=== PATIENT | male | born 1955 | race Caucasian/White ===

== ENCOUNTER 2024-02-15 21:38 | Observation (INO) | payer OTHER, SELFPAY ==
[2024-02-15 17:25] VITALS: BP 132/90
[2024-02-15 17:31] VITALS: BMI 26.4
[2024-02-15 18:00] VITALS: BP 117/74
[2024-02-15 19:00] VITALS: BP 119/79
[2024-02-15] MEDS: NSS 250 IV (19:10)
[2024-02-15 19:40] LABS: ALT (SGPT) 40 U/L (0-50); AST (SGOT) 34 U/L (17-59); Alkaline Phosphatase 138 U/L (38-126); Blood Urea Nitrogen 24 mg/dl (9-20); Calcium 9.3 mg/dl (8.4-10.2); Carbon Dioxide 22 mmol/L (22-30); Chloride 104 mmol/L (98-107); Estimated Creatinine Clearance 100 ml/min; Glucose 113 mg/dl (70-99); Potassium 4.4 mmol/L (3.5-5.1); Sodium 133 mmol/L (135-145); Total Protein 6.8 g/dl (6.3-8.2); eGFR > 60.00
[2024-02-15] MEDS: MORPHINE SULFATE 2 MG IV (19:40)
[2024-02-15 19:43] LABS: % Basophils 0.1 % (0-2); % Eosinophils 0.4 % (0-6); % Immature Granulocytes 1.2 % (0-0.5); % Lymphocytes 15.9 % (20.5-51.1); % Monocytes 7.7 % (1.7-9.3); % Neutrophils 74.7 % (42.2-75.2); Absolute Eosinophils 0.1 10^3/uL (0-0.7); Absolute Immature Granulocytes 0.1 10^3/uL (0-0.05); Absolute Lymphocytes 1.8 10^3/uL (1.2-3.4); Absolute Monocytes 0.9 10^3/uL (0.1-0.6); Absolute Neutrophils 8.4 10^3/uL (1.4-6.5); Hematocrit 36.6 % (39.0-52.0); Hemoglobin 13.1 g/dL (13.0-18.0); Mean Corp Hgb Conc. 35.8 g/dL (33.0-37.0); Mean Corpuscular Hgb 31.9 pg (27.0-31.0); Mean Corpuscular Volume 89.1 fL (80.0-94.0); Mean Platelet Volume 11.1 fL (7.4-10.4); Nucleated Red Blood Cells % 0 % (-); Platelet Count 77 10^3/uL (130-400); Red Blood Cell Count 4.11 10^6/uL (4.70-6.10); White Blood Cell Count 11.2 10^3/uL (4.8-10.8)
--- NOTE | 2024-02-15 20:43 | ED.GENMED ---
History of Present Illness
General
Chief Complaint: Fall
Source: patient
Exam Limitations: none
Time Seen by Provider: 02/15/24 18:35
History of Present Illness
History of Present Illness:
68-year-old male apparently fell trying to assist a friend. Patient's friend fell on him. Mostly complaining of pain left hip and left buttock. No head injury neck pain no chest pain or abdominal pain.
Past History
Past History
ED Past Medical History: Psychiatric and Other (Alcohol abuse)
Review of Systems
Review of Systems
All Other Systems: Not applicable
Respiratory: Reports no symptoms
Cardiac: Reports no symptoms
ABD/GI: Reports no symptoms
Phy Exam
Physical Exam
Physical Exam:
TRAUMA EXAM:
VITAL SIGNS: Vital signs reviewed, cooperative
DISTRESS: No active disease
EYES: Pupils reactive, no orbital trauma
NOSE: No deformity or epistaxis
FACE AND SCALP: No scalp or facial trauma, external canals no blood
NECK: Supple nontender
BACK: Back nontender, pelvis stable to compression. However some tenderness to the left pubic rami and posterior buttock.
RESPIRATORY: No distress, breath sounds normal, no tender chest wall
CARDIAC: No murmur, pulses equal and strong
ABDOMEN: Soft mild tenderness nonlocalizing. Mostly lower quadrants. No rebound or guarding no mass or hernia
SKIN: Skin intact no bleeding, color normal
EXTREMITIES: No pain with hip rotation. Upper extremities normal.
NEUROLOGICAL: Alert, oriented, no motor deficits
PSYCH: Mood affect normal
Course
Orders/Labs/Results
Orders:
Orders
02/15/24 18:49
0.9% Sodium Chloride 250 ml [Nss] 250 ml IV BOLUS
02/15/24 18:50
CT Abd/pel W Iv Cont (trauma) Urgent
Comment:
Reason For Exam: Fall/abdominal pain
Cardiac Monitoring- Treatment ONCE
CR Hip - LT w/wo Pel 2-3 Vw* Urgent
Comment: include pelvis
Reason For Exam: Fall/left leg pain
Include a pelvis x-ray?: Yes
02/15/24 19:16
Complete Blood Count/With Diff Urgent
Comprehensive Metabolic Panel Urgent
02/15/24 19:52
Morphine Sulfate 2 mg .ROUTE .STK-MED ONE
02/15/24 20:07
Morphine Sulfate 2 mg IV NOW STA
02/15/24 21:13
Admit/Transfer Patient As Directed
Co-Sign Provider:
Level of Care: Observation services
Assign to:: Medical/Surgical
Physician / Group: Dior
Diagnosis: Pelvic Fracture
02/15/24 21:18
PRN Pain Medication Management As Directed
May give lesser potent ordered pain med per pt: Yes
preference::
Protocol:: Medication orders for pain may be administered in a
manner that supports deferring to patient preference
when the pt is:
- Requesting an ordered lesser potent pain medication.
Least to most potent pain medications are defined
as: acetaminophen < NSAID < tramadol < opioids
(morphine, oxycodone, hydromorphone).
- Requesting a lesser dose of the same medication IF
ORDERED.
- Requesting a less intrusive route of administration
if both routes are prescribed by the provider (PO <
IV).
02/15/24 21:19
Code Status As Directed
Resuscitation Status: Full Code
02/15/24 21:33
Type+Screen Urgent
Prothrombin Time Urgent
02/15/24 22:00
Flush (0.9% Sodium Chloride) [Flush (Nss)] See Dose Instructions IV PER PROTOCOL
Abnormal Lab Results
02/15/24 02/15/24
19:16 21:33
WBC 11.2 H 10^3/uL
(4.8-10.8)
RBC 4.11 L 10^6/uL
(4.70-6.10)
Hct 36.6 L %
(39.0-52.0)
MCH 31.9 H pg
(27.0-31.0)
Plt Count 77 L 10^3/uL
(130-400)
MPV 11.1 H fL
(7.4-10.4)
Abs Immat Gran (auto) 0.1 H 10^3/uL
(0-0.05)
Absolute Neuts (auto) 8.4 H 10^3/uL
(1.4-6.5)
Absolute Monos (auto) 0.9 H 10^3/uL
(0.1-0.6)
Immature Gran % 1.2 H %
(0-0.5)
Lymphocytes % 15.9 L %
(20.5-51.1)
PT 16.0 H Sec
(11.4-14.6)
Sodium 133 L mmol/L
(135-145)
BUN 24 H mg/dl
(9-20)
Glucose 113 H mg/dl
(70-99)
Alkaline Phosphatase 138 H U/L
(38-126)
02/15/24 19:16
02/15/24 19:16
Vital Signs
Initial and Last Documented VS:
Initial Vital Signs
BP
132/90
02/15/24 17:25
Last Documented Vital Signs
Pulse Resp BP Pulse Ox
82 17 108/68 95
02/15/24 22:10 02/15/24 22:10 02/15/24 22:10 02/15/24 22:10
*Radiology
Radiology exam reviewed: radiology read reviewed (Nondisplaced fractures left superior rami buckle of the inferior rami. Transverse fracture of the left iliac crest no acetabular fracture small amount of blood along the pelvic wall though no active
bleeding no evidence of abdominal trauma.)
*Pulse Oximetry
Patient hypoxic: no
*Critical Care Note
Total Time (30-74mins, 75-104mins- exclusive of procedures): Not Applicable
Update Note
Update Note:
Patient has remained medically stable. Nondisplaced pelvic fractures. Admission for further care
ED Attending Note
-
Portions of this chart may have been created with voice recognition software.� Occasional wrong word or��sound alike� substitutions may have occurred due to the inherent limitations of voice recognition software.
Discharge Plan
Departure
Patient Disposition: Admit
Date of Disposition: 02/15/24
Time of Disposition: 20:45
Presentation/result/management discussed w/ accepting MD/DO: Hospitalist
Discharge Problem:
Pelvic fracture, Cirrhosis, Schizoaffective disorder
Interventions
Interventions:
*Risk Screen - Suicide Last Done: 02/15/24 17:24
*General Assessment Last Done: 02/15/24 17:24
*Neglect/Abuse Screening Last Done: 02/15/24 17:24
ED- Fall Risk Assessment Last Done: 02/15/24 17:24
*ED COVID-19 Vaccine History Last Done: 02/15/24 22:30
*Nursing Disposition Last Done: 02/15/24 22:10
ED-Musculoskeletal Assessment Last Done: 02/15/24 17:32
ED- Neurological Assessment Last Done: 02/15/24 17:24
ED-Skin Assessment Last Done: 02/15/24 17:24
Discharge Date and Time
Discharge Date/Time: 02/15/24 22:11
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
[2024-02-15 21:00] VITALS: BP 115/71
--- NOTE | 2024-02-15 21:32 | HPS.HSE ---
Addendum entered and electronically signed by Jaya Rader DO 02/16/24 06:39:
I saw and examined the patient.
The PAs's note was reviewed and I agree with plan as below; see Update Note dated 02/15/24 for attending attestation.
Original Note:
Family Physician
-
Family Physician: Martin Yee, DO
Chief Complaint
-
Fall
History of Present Illness
Patient is a 68 y/o male past medical history of alcohol cirrhosis, chronic thrombocytopenia and polyneuropathy who presents following a fall. Patient reports he was attempting to help his roommate off the floor of the bathroom when he lost his
balance and fell landing on his left hip/buttock area. Patient complains of significant pain. Work-up in ED reveal evidence of multiple pelvic fractures.
Medical History
Past Medical History
Past Medical History: Reports Other
Additional Past Medical History:
Depression / Mood Disorder
Alcohol Use Disorder
Alcoholic Cirrhosis
Thrombocytopenia
Polyneuropathy
Past Surgical History: Reports None
Social History
Tobacco: Former Smoker (Quit in 1993)
Alcohol: Former
Living: Correction
Family History
Family History: Not pertinent
Allergies / Home Medications
Allergies reflects when Allergies were last updated in [facility].
Home Medications with original date entered in [facility]
Allergy/Medication List:
Allergies
Allergy/AdvReac Type Severity Reaction Status Date / Time
No Known Allergies Allergy Verified 02/15/24 19:29
Home Medications
Miralax 17 g PO DAILY 02/15/24
Seroquel XR 50 mg PO QHS 02/15/24
Vitamin D3 25 mcg PO DAILY 02/15/24
Xifaxan 550 mg PO BID 02/15/24
ascorbic acid (vitamin C) 500 mg PO DAILY 02/15/24
cyclobenzaprine 5 mg tablet 5 mg PO QHS 02/15/24
docusate sodium 100 mg capsule (Colace) 100 mg PO DAILY 02/15/24
duloxetine 20 mg capsule,delayed release sprinkle 20 mg PO DAILY 02/15/24
ferrous sulfate 325 mg PO DAILY 02/15/24
folic acid 1 mg tablet 1 mg PO DAILY 02/15/24
furosemide 40 mg PO DAILY 02/15/24
gabapentin 400 mg PO TID 02/15/24
lactulose 20 g PO TID 02/15/24
magnesium oxide 400 mg PO TID 02/15/24
melatonin 5 mg PO QHS 02/15/24
olanzapine 10 mg PO DAILY 02/15/24
pantoprazole 40 mg tablet,delayed release (Protonix) 40 mg PO DAILY 02/15/24
senna 836 mg PO DAILY 02/15/24
spironolactone 50 mg PO BID 02/15/24
thiamine HCl (vitamin B1) 100 mg PO DAILY 02/15/24
Review of Systems
-
A 12 point ROS was completed and negative except as noted: Yes
Constitutional: Denies Fever or Chills
Respiratory: Denies Cough or Trouble Breathing
Abdomen/GI: Denies Abdominal Pain, Nausea, Vomiting or Diarrhea
: Denies Bleeding
Physical Exam
Vital Signs
Vital Signs
Pulse Resp BP Pulse Ox
85 23 119/79 94
02/15/24 19:15 02/15/24 19:15 02/15/24 19:00 02/15/24 19:00
Physical Exam
General: Comfortable and Conversant
HEENT: Anicteric and Moist mucous membranes
Respiratory: Clear and Non Labored Respirations
Cardiac: S1/S2 and Regular Rhythm
GI: Soft and Non Tender
Musculoskeletal: No Clubbing, No Cyanosis and No Edema
Skin: Warm and Dry
Neuro: Awake, Alert, Oriented and Nonfocal/grossly intact
Psych: Calm
Laboratory Results
-
02/15/24 19:16
02/15/24 19:16
Laboratory Results
Total Bilirubin 1.0 mg/dl (0.2-1.3) 02/15/24 19:16
AST 34 U/L (17-59) 02/15/24 19:16
ALT 40 U/L (0-50) 02/15/24 19:16
Alkaline Phosphatase 138 U/L (38-126) H 02/15/24 19:16
Data Reviewed
-
CT Scan: Report Reviewed by me
Lab Data: Labs Reviewed by me
Impression/Plan
-
Multiple Pelvic Fractures
-CT Abd/Pelvis CT: Non-displaced fracture of the left superior pubic rami. Buckled appearing fracture of the left inferior pubic rami. Transverse appearing fracture noted of left iliac crest fracture. Small amount of blood products noted along the
left pelvic sidewall. No evidence of extravasation to suggest bladder injury. No blush of contrast to suggest ongoing hemorrhage.
-Consult Ortho
-Bedrest until seen by Ortho
-Trend H&H
-Check coags and type/screen
-Pain management
Alcoholic Cirrhosis
-Continue Lasix and Spironolactone
-Continue Lactulose
-Continue Xifaxan
Chronic Thrombocytopenia
-Monitor platelet count
Polyneuropathy
-Continue gabapentin
Depression / Mood Disorder
-Continue duloxetine, Zyprexa and Seroquel
DVT proph: SCDs
Code Status: Full Code
[2024-02-15 22:10] VITALS: BP 108/68
[2024-02-15 23:21] VITALS: BP 124/75; BMI 25.5
[2024-02-15] MEDS: MELATONIN 5 MG PO (23:42)
[2024-02-15] MEDS: DUPHALAC/CHRONULAC 20 GRAMS PO (23:42)
[2024-02-15] MEDS: NEURONTIN 400 MG PO (23:42)
[2024-02-15] MEDS: MAGNESIUM OXIDE 500 MG PO (23:42)
[2024-02-15] MEDS: DILAUDID 0.5 MG IV (23:43)
--- NOTE | 2024-02-15 23:45 | PTCARENOTE ---
Received patient from ED via stretcher. Patient pulled over from stretcher to bed, ordered bedrest due to pelvic fractures. States pain is 9/10 to his left buttock - prn dilaudid given as ordered. Oriented patient to room and placed call avery within
reach.
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
[2024-02-16 06:00] VITALS: BMI 25.4
[2024-02-16] MEDS: DILAUDID 0.5 MG IV (06:17)
[2024-02-16 07:35] VITALS: BP 112/73
[2024-02-16] MEDS: FEOSOL 325 MG PO (07:57)
[2024-02-16] MEDS: MIRALAX 17 GRAMS PO (07:57)
[2024-02-16] MEDS: ALDACTONE 50 MG PO ×2 (07:57→21:31)
[2024-02-16] MEDS: DUPHALAC/CHRONULAC 20 GRAMS PO ×3 (07:57→21:32)
[2024-02-16] MEDS: SEROQUEL 25 MG PO ×2 (07:58→20:27)
[2024-02-16] MEDS: MAGNESIUM OXIDE 500 MG PO ×3 (07:58→21:30)
[2024-02-16] MEDS: ZYPREXA 10 MG PO (07:58)
[2024-02-16] MEDS: FOLVITE 1 MG PO (07:58)
[2024-02-16] MEDS: XIFAXAN 550 MG PO ×2 (07:58→20:27)
[2024-02-16] MEDS: LASIX 40 MG PO (07:58)
[2024-02-16] MEDS: CYMBALTA DELAYED RELEASE 20 MG PO (07:58)
[2024-02-16] MEDS: PROTONIX 40 MG PO (07:58)
[2024-02-16] MEDS: VITAMIN B1 100 MG PO (07:58)
[2024-02-16] MEDS: NEURONTIN 400 MG PO ×3 (07:58→21:30)
--- NOTE | 2024-02-16 08:59 | CON.ORTHO ---
Consultation
-
Date/Time Consultation Requested: 02/16/2024; time unknown
Date/Time Consultation Performed: 02/16/2024; 0800
Requesting Provider: unknown
Performing Provider: Charlene Sanchez PA-C / Dr. Kassandra Sandoval
Reason for Consultation: Left pelvic fractures
Consultation - Orthopedics
History
Mr. Navarro is a 68 y/o male past medical history of alcohol cirrhosis, chronic thrombocytopenia and polyneuropathy seen today for evaluation of his left hip/ pelvis following a fall. He reports he was attempting to help his roommate up from the
bathroom floor. His roommate is quite heavy, and Mr. Navarro fell and landed on his left side. He reports his roommate then fell on top of him. He presented to ED where CT scan reveals fracture of his ilium, superior and inferior pubic rami. He is
resting comfortably in bed this morning. He does endorse mild discomfort about the hip, but states this is improved with his current medications. He denies pain elsewhere and has no other concerns at this time.
Allergies / Home Medications
Allergy/AdvReac Type Severity Reaction Status Date / Time
No Known Allergies Allergy Verified 02/15/24 19:29
�Medication �Instructions �Recorded
Miralax 17 g PO DAILY Constipation 02/15/24
Seroquel XR 50 mg PO QHS Mental Health/Anxiety 02/15/24
Vitamin D3 25 mcg PO DAILY Supplement 02/15/24
Xifaxan 550 mg PO BID CIRRHOSIS 02/15/24
ascorbic acid (vitamin C) 500 mg PO DAILY Supplement 02/15/24
cyclobenzaprine 5 mg tablet 5 mg PO QHS Muscle Spasms 02/15/24
docusate sodium 100 mg capsule 100 mg PO DAILY Constipation 02/15/24
(Colace)
duloxetine 20 mg capsule,delayed 20 mg PO DAILY Depression 02/15/24
release sprinkle
ferrous sulfate 325 mg PO DAILY Supplement 02/15/24
folic acid 1 mg tablet 1 mg PO DAILY Supplement 02/15/24
furosemide 40 mg PO DAILY CIRRHOSIS 02/15/24
gabapentin 400 mg PO TID NEUROPATHY 02/15/24
lactulose 20 g PO TID CIRRHOSIS 02/15/24
magnesium oxide 400 mg PO TID Supplement 02/15/24
melatonin 5 mg PO QHS Sleep 02/15/24
olanzapine 10 mg PO DAILY Mental 02/15/24
Health/Anxiety
pantoprazole 40 mg tablet,delayed 40 mg PO DAILY Gastrointestinal 02/15/24
release (Protonix) Issue
senna 836 mg PO DAILY Constipation 02/15/24
spironolactone 50 mg PO BID CIRRHOSIS 02/15/24
thiamine HCl (vitamin B1) 100 mg PO DAILY Supplement 02/15/24
Vital Signs / Lab Results
Temp Pulse Resp BP Pulse Ox
97.6 F 80 16 112/73 94
02/16/24 07:35 02/16/24 07:35 02/16/24 07:35 02/16/24 07:35 02/16/24 07:35
CT abdomen/pelvis IMPRESSION:
Nondisplaced linear fracture through the left superior pubic ramus with a buckle fracture of the inferior left pubic ramus. There is an additional transverse fracture through the left ilium/iliac crest which extends to the inferior aspect of the
left sacroiliac joint. There is associated hematoma extending along the left iliacus/pelvic sidewall.
Directed exam of the left lower extremity reveals no obvious erythema, ecchymosis or lesions about the left hip. Mild tenderness to palpation about the anterior hip and iliac crest. Pain elicited with hip ROM. Thigh soft and compressible. Soft and
nontender. Patient able to wiggle toes, plantar and dorsiflex ankle. Sensation to light touch diminished consistent with neuropathy. Palpable pt and dp pulses.
Assessment / Plan
Multiple fractures of left pelvis
--Unfortunately, Benson sustained multiple fracture of his pelvis including his illium, superior and inferior pubic rami. These can be managed non-operatively. He may continue weight bearing as tolerated with a walker. Recommend PT/OT. We will see
the patient in the office in 4 weeks for repeat x-rays. Pain control per primary. Orthopedics will sign off for now. Please reach out with any additional orthopedic questions or concerns.
[2024-02-16 09:10] LABS: Blood Urea Nitrogen 21 mg/dl (9-20); Carbon Dioxide 21 mmol/L (22-30); Chloride 104 mmol/L (98-107); Estimated Creatinine Clearance 114 ml/min; Glucose 88 mg/dl (70-99); Potassium 4.2 mmol/L (3.5-5.1); Sodium 134 mmol/L (135-145); eGFR > 60.00
--- NOTE | 2024-02-16 09:42 | W.PN.UPDATE ---
Update Note
Progress Note Update
Patient seen after he had obtained x-rays of his left hand at the request of his hospitalist. He had apparently injured his left index finger as well during his fall. He did have pre-existing arthritis of his hand and a injury to his left ring
finger in the remote past. He has not had any injuries to his index finger in the past.
Left lower extremity: No leg length discrepancies. Negative logroll. Pain with range of motion of left hip.
Left hand: Tenderness to palpation about the base of the middle phalanx. Arthritic type changes of the hand. No angular rotational deformities. Neurovascularly intact. Mild ecchymosis of the middle phalanx. Mild ecchymosis of the long finger
without tenderness to palpation.
X-rays and CT scan of left hip and pelvis show fractures of superior and inferior rami and ilium essentially nondisplaced. No acetabular involvement.
X-rays performed of the left hand AP and lateral attention left index finger show a mildly displaced intra-articular fracture of the base of the middle phalanx. Pre-existing arthritic changes of the left hand severe.
Impression: Left hemipelvis fracture (superior and inferior rami and ilium), left index finger middle phalanx intra-articular fracture mildly displaced
Plan: Patient is use a walker for ambulation purposes he may weight-bear as tolerated on the left lower extremity. I nii taped his index finger to his long finger. He is to nii tape day and night remove for showering purposes only. Risk of
posttraumatic arthritis was discussed. Patient already has pre-existing arthritis of that hand. I will see him as an outpatient in 4 weeks for x-rays of his pelvis and left index finger. All questions were answered.
[2024-02-16 10:02] LABS: Hematocrit 37.1 % (39.0-52.0); Hemoglobin 12.8 g/dL (13.0-18.0); Mean Corp Hgb Conc. 34.5 g/dL (33.0-37.0); Mean Corpuscular Volume 92.8 fL (80.0-94.0); Mean Platelet Volume 10.9 fL (7.4-10.4); Platelet Count 78 10^3/uL (130-400); Red Cell Dist. Width 13.2 % (11.5-14.5)
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
[2024-02-16] MEDS: ROXICODONE 5 MG PO ×3 (12:18→21:30)
--- NOTE | 2024-02-16 15:15 | CM ---
CM met with Benson at bedside to complete IA. Benson lives at [facility]. He admits that he is a recovering alcoholic, but does not have access to going to AA meeting since he lives in a SNF. He shared many things about his life, including
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
Benson loves to go fishing and spoke of some of his 'big catches', particularly catfish which he loves.
I met with Benson to discuss Advance Directives and after review of the purpose of an AD, he would like to complete one.
Plan: SHIRLEY to follow up with Benson in AM to review and assist with AD completion.
[2024-02-16 15:25] VITALS: BP 117/81
[2024-02-16] MEDS: LOVENOX 40 MG SC (17:05)
[2024-02-16] MEDS: MELATONIN 5 MG PO (21:31)
[2024-02-16 23:29] VITALS: BP 109/71
[2024-02-17] MEDS: ROXICODONE 5 MG PO ×2 (02:25→08:45)
[2024-02-17 06:00] VITALS: BMI 25.3
[2024-02-17 07:23] VITALS: BP 105/68
[2024-02-17 07:32] LABS: Hematocrit 36.8 % (39.0-52.0); Hemoglobin 12.8 g/dL (13.0-18.0); Mean Corp Hgb Conc. 34.8 g/dL (33.0-37.0); Mean Platelet Volume 11.2 fL (7.4-10.4); Platelet Count 66 10^3/uL (130-400); Red Cell Dist. Width 13.1 % (11.5-14.5); White Blood Cell Count 8.4 10^3/uL (4.8-10.8)
[2024-02-17 08:11] LABS: Blood Urea Nitrogen 22 mg/dl (9-20); Calcium 8.8 mg/dl (8.4-10.2); Carbon Dioxide 23 mmol/L (22-30); Chloride 104 mmol/L (98-107); Estimated Creatinine Clearance 114 ml/min; Glucose 96 mg/dl (70-99); Potassium 4.7 mmol/L (3.5-5.1); Sodium 133 mmol/L (135-145); eGFR > 60.00
[2024-02-17] MEDS: ALDACTONE 50 MG PO (08:41)
[2024-02-17] MEDS: PROTONIX 40 MG PO (08:41)
[2024-02-17] MEDS: MAGNESIUM OXIDE 500 MG PO (08:41)
[2024-02-17] MEDS: FOLVITE 1 MG PO (08:41)
[2024-02-17] MEDS: DUPHALAC/CHRONULAC 20 GRAMS PO (08:42)
[2024-02-17] MEDS: SEROQUEL 25 MG PO (08:42)
[2024-02-17] MEDS: CYMBALTA DELAYED RELEASE 20 MG PO (08:42)
[2024-02-17] MEDS: ZYPREXA 10 MG PO (08:42)
[2024-02-17] MEDS: VITAMIN B1 100 MG PO (08:42)
[2024-02-17] MEDS: FEOSOL 325 MG PO (08:42)
[2024-02-17] MEDS: NEURONTIN 400 MG PO (08:42)
[2024-02-17] MEDS: LASIX 40 MG PO (08:42)
[2024-02-17] MEDS: MIRALAX 17 GRAMS PO (08:43)
[2024-02-17] MEDS: XIFAXAN 550 MG PO (08:45)
--- NOTE | 2024-02-17 09:28 | CM ---
Addendum entered by Jennifer Smith 02/17/24 12:06:
Pt ready for dc
Call with [facility]- all auth requests to be faxed in, no pending ref# to be provided
Clinicals faxed to [phone]- confirmation received
Update to [facility]/SNF admissions- confirmed readmission with pending auth as pt is LTC resident
Pending auth request emailed to her per her request to [email or web address]
Update to guardian's office, call with nurse Bel
OBS form verbally reviewed over phone- copy emailed to her per request [email or web address]
Bedside update to pt
Transport forms completed and on chart
[facility] received [facility] auth for BLS transport
Discharge Disposition- return to [facility] via BLS
Phone- [phone] Fax- [phone]
Original Note:
CM reviewed chart and obtained PLOF info from SNF nursing
Pt is independent with ambulation and transfers without any ADs
He requires supervision for personal care tasks
AxO 2x- occasional agitation and outbursts
Per admissions, pt will require [facility] auth
Will accept back for LTC with pending auth
Awaiting PT/OT evals
[facility] [id number] Tax ID [id number]
Dr Martin Yee [id number]
[2024-02-17 09:38] VITALS: BP 118/74; PULSE 82
[2024-02-17 09:42] VITALS: BP 118/74; PULSE 82
--- NOTE | 2024-02-17 11:33 | W.PN.HOSP.TC ---
Today's Communication/Plan
-
cm for d/c to SNF (reported need of 2 person assistance for [id number]
Assessment / Plan
Assessment / Plan
68yo M with PMHx of alcoholic liver cirrhosis, anxiety, JOSE, esophageal varicies brought from SNF after the fall when he was trying to help his roommate to stand up in the bathroom. No LOC. FOund non-displaced L superior pubic rami, L inferior pubic
rami and L iliac crest, as per ortho - non-operative mgmt. As per patient - he was not followed by GI, so outpatient GI monitoring in view of cirrhosis advised. HE verbalized understanding of the instructions.
A/P:
Fall without LOC with non-displaced L superior pubic rami, L inferior pubic rami and L iliac crest
as per ortho - non-operative mgmt
Follow in the clinic in 4 weeks
#osteoarthritis
#Chronic thrombocytopenia 2/2 liver cirrhosis without acute encephalopathy
#Esophageal varices and splenomegaly 2/2 liver cirrhosis
outpatient GI to follow
cont home meds
#Anxiety d/o
COnt home meds
#MIld clinically insignificant hyponatremia
#Lung atelectasis
#R renal cyst
#Diverticulosis w/o diverticulitis
no fever, no leukocytosis
DVT ppx SCDs
Full code
I have spent at least 36min reviewing chart, test results, communication with consultants and direct patient care
Anticipated Discharge: Within 24 hours
Subjective/Interval History
-
Date of Service: February 17, 2024
Objective Data
-
Labs:
Laboratory Results
02/17/24
06:44
WBC 8.4
Hgb 12.8 L
Hct 36.8 L
Plt Count 66 L
Sodium 133 L
Potassium 4.7
Chloride 104
Carbon Dioxide 23
BUN 22 H
Creatinine 0.7
Glucose 96
Calcium 8.8
Vital Signs:
Vital Signs
Temp Pulse Resp BP Pulse Ox
97.8 F 85 22 105/68 95
02/17/24 07:23 02/17/24 08:41 02/17/24 07:23 02/17/24 08:41 02/17/24 07:23
I&O
02/16/24 02/17/24 02/18/24
06:59 06:59 06:59
Intake Total 480 / 480 600 / 600
Output Total 400 / 400 1225 / 1225
Balance 80 / 80 -625 / -625
Review of Systems
-
History Source: Patient
All other systems: Reviewed and negative
Physical Exam
-
General: No Apparent Distress
HEENT: Normocephalic
Respiratory: Clear to Auscultation
Cardiac: Regular Rhythm
GI: Soft, Nontender and Nondistended
Musculoskeletal: No Clubbing and No Cyanosis
Skin: Warm
Neuro: Awake, Alert and Oriented
--- NOTE | 2024-02-17 11:39 | W.DCSUMMARY ---
Discharge Summary
Discharge Data
Date of Admission: 02/15/24
Date of Discharge: 02/17/24
-
Pending Results: No
Hospital Course
68yo M with PMHx of alcoholic liver cirrhosis, anxiety, JOSE, esophageal varicies brought from SNF after the fall when he was trying to help his roommate to stand up in the bathroom. No LOC. FOund non-displaced L superior pubic rami, L inferior pubic
rami and L iliac crest, as per ortho - non-operative mgmt. As per patient - he was not followed by GI, so outpatient GI monitoring in view of cirrhosis advised. HE verbalized understanding of the instructions. Medically stable for d/c
I have spent at least 36min preparing patient d/c, reviewing chart, test results, communication with consultants and direct patient care
Patient was managed for:
#Fall without LOC with non-displaced L superior pubic rami, L inferior pubic rami and L iliac crest
#osteoarthritis
#Chronic thrombocytopenia 2/2 liver cirrhosis without acute encephalopathy
#Esophageal varices and splenomegaly 2/2 liver cirrhosis
#Anxiety d/o
#Mild clinically insignificant hyponatremia
#Lung atelectasis
#R renal cyst
#Diverticulosis w/o diverticulitis
Discharge Plan
-
Patient Disposition: [facility]/SNF
Discharge Diagnosis/Procedures: Pelvic Fx
Diet: Regular
Activity: As tolerated
Driving Restrictions: As prior to admission
Bathing Restrictions: None
Referrals:
Martin Yee DO [Family Provider] -
Kassandra Sandoval DO [Active] - in three to four weeks
Kirit Avila MD [Active] - in four to six weeks (Cirrhosis mgmt)
Prescriptions:
New
oxycodone 5 mg Tablet
5 mg PO Q4HPRN PRN (Reason: moderate pain) 3 Days Qty: 9 0RF
Continued
ascorbic acid (vitamin C) 500 mg
500 mg PO DAILY
pantoprazole [Protonix] 40 mg Tablet,Delayed Release (Dr/Ec)
40 mg PO DAILY
docusate sodium [Colace] 100 mg Capsule
100 mg PO DAILY
folic acid 1 mg Tablet
1 mg PO DAILY
cyclobenzaprine 5 mg Tablet
5 mg PO QHS
duloxetine 20 mg Capsule, Delayed Rel Sprinkle
20 mg PO DAILY
Miralax
17 g PO DAILY
Seroquel XR
50 mg PO QHS
Vitamin D3
25 mcg PO DAILY
Xifaxan
550 mg PO BID
ferrous sulfate 325 mg
325 mg PO DAILY
furosemide
40 mg PO DAILY
gabapentin
400 mg PO TID
lactulose
20 g PO TID
magnesium oxide
400 mg PO TID
melatonin
5 mg PO QHS
olanzapine
10 mg PO DAILY
senna
836 mg PO DAILY
spironolactone
50 mg PO BID
thiamine HCl (vitamin B1)
100 mg PO DAILY
Discharge Orders:
Discharge Patient (As Directed); Ordered 02/17/24
Ordered By: Kp Juárez
Discharge Date and Time
Print Language: POLISH
[2024-02-17] MEDS: PREVNAR 20 0.5 ML IM (13:13)
[2024-02-17 15:49] VITALS: BP 99/67
--- NOTE | 2024-02-18 16:17 | CM ---
CM spoke with [address] [phone] to follow up on auth request
Pending ref# provided [id number]
Noted that [address] policy ending in 153 has terminated
Pt is Medicare primary and has [address] now secondary policy# [id number]
Auth has been voided
Update to [facility]/SNF admissions
== END 2024-02-17 17:05 ==
LOC: 4 EAST ACU 21:38
PROVIDERS: Hospitalist; Physician Assistant Medical; ADMITTING PHYSICIAN Internal Medicine; ATTENDING PHYSICIAN Internal Medicine; CONSULT PHYSICIAN Orthopaedic Surgery; EMERGENCY PHYSICIAN Emergency Medicine; FAMILY PHYSICIAN Internal Medicine
DX: S32.82XA Multiple fractures of pelvis without disruption of pelvic ring, initial encounter for closed fracture (principal); M25.552 Pain in left hip; K70.30 Alcoholic cirrhosis of liver without ascites; J98.11 Atelectasis; R16.1 Splenomegaly, not elsewhere classified; F12.90 Cannabis use, unspecified, uncomplicated; N28.1 Cyst of kidney, acquired; K42.9 Umbilical hernia without obstruction or gangrene; K40.20 Bilateral inguinal hernia, without obstruction or gangrene, not specified as recurrent; D69.59 Other secondary thrombocytopenia; D64.9 Anemia, unspecified; K57.30 Diverticulosis of large intestine without perforation or abscess without bleeding; M18.12 Unilateral primary osteoarthritis of first carpometacarpal joint, left hand; I85.10 Secondary esophageal varices without bleeding; E87.1 Hypo-osmolality and hyponatremia; G62.9 Polyneuropathy, unspecified; F41.9 Anxiety disorder, unspecified; F10.11 Alcohol abuse, in remission; W18.39XA Other fall on same level, initial encounter; Y93.F2 Activity, caregiving, lifting; Y92.002 Bathroom of unspecified non-institutional (private) residence as the place of occurrence of the external cause; Z87.891 Personal history of nicotine dependence; Z23 Encounter for immunization
CPT/HCPCS: 71046; 73120; 73502; 74177; 80048; 80053; 85025; 85027; 85610; 86850; 86900; 86901; 87070; 90677; 96361; 96374; 97162; 97166; 99285; G0009; G0378; Q9967

== ENCOUNTER 2025-02-05 10:40 | Emergency (ER) | payer OTHER, SELFPAY ==
[2025-02-05 10:46] VITALS: BP 102/67
--- NOTE | 2025-02-05 12:25 | ED.GENMED ---
History of Present Illness
General
Chief Complaint: Wound Check/Suture Removal
Source: patient, records and senior care
Exam Limitations: none
Time Seen by Provider: 02/05/25 11:12
Nursing documentation reviewed up to this point in time: agreed with
History of Present Illness
History of Present Illness:
69-year-old male with history as noted presents to the emergency room from [facility] for unclear reasons. He was transported via wheelchair van from [facility]�the patient seems to think that he is here to have tiffanie removed from his left
shoulder. He has a shoulder immobilizer with cushion in place on the left upper extremity and tells me that he had an orthopedic surgery 5 days ago although he cannot tell me what procedure was done. He seems to think it was done through [facility] orth[facility]ist but he cannot really remember where it was done let alone the name of the surgeon. He seems to think that he was placed in the wheelchair van from [facility] to have tiffanie removed from his shoulder--he is not sure why he is in
the emergency room right now. He is a very poor historian with very limited insight into his medical care.
Past History
Past History
ED Past Medical History: Psychiatric and Other (Alcohol abuse)
Review of Systems
Review of Systems
All Other Systems: ROS reviewed and negative except as documented in HPI and ROS
Respiratory: Denies trouble breathing
Cardiac: Denies chest pain
ABD/GI: Denies abdominal pain
: Denies flank pain
Musculoskeletal: Denies neck pain or back pain
Neurological: Denies dizzy or headache
Phy Exam
Physical Exam
Physical Exam:
General: Well appearing and non-toxic
HEENT: protecting airway
Neck: appears supple
CV: No evidence of cyanosis
Resp: No accessory muscle use
Abd: Non-distended
Extremities: Patient has shoulder immobilizer with cushion on left upper extremity; he has bruising around the anterior left shoulder and large surgical incision with dressing in place, no signs of acute infection; there is a strong left radial
pulse, motor and sensory intact distal left upper extremity
Neuro: Alert
Scores
Heart Failure Risk
Heart Failure Risk Score: Not Applicable
Heart Score for Chest Pain Patients
STEMI patient?: Not applicable
Withdrawal Assessment of Alcohol
Withdrawal Assessment Completed?: Not applicable
Course
Vital Signs
Initial and Last Documented VS:
Initial Vital Signs
Temp Pulse Resp BP Pulse Ox
36.8 C 98 16 102/67 95
02/05/25 10:46 02/05/25 10:46 02/05/25 10:46 02/05/25 10:46 02/05/25 10:46
Last Documented Vital Signs
Temp Pulse Resp BP Pulse Ox
36.8 C 98 16 102/67 95
02/05/25 10:46 02/05/25 10:46 02/05/25 10:46 02/05/25 10:46 02/05/25 10:46
MDM/Problems Addressed
Differential Diagnosis Includes:
Medical screening examination
MDM/Problems Addressed:
69-year-old male presents to the emergency room for unclear reasons�he initially seemed to think that he was here to have his tiffanie removed after reportedly having a procedure done on his left shoulder 5 days ago. Unclear where this procedure was
done or by whom. Patient is a very poor historian in this regard. His surgical site does appear relatively recent and unclear whether enough time has passed since procedure to remove tiffanie; furthermore would defer staple removal to operating
physician after procedure like this. I called the senior care at [facility] and spoke to the nurses over at [facility] extensively about this case. Initially I was told that he was sent for an orthopedic appointment and that they are not sure why
he was transported to the emergency room instead of the orthopedist office. Initially they reported that he was supposed to go to [facility] orthopedist although they could not tell me the name of the physician. I then called [facility]
orthopedist as well as [facility] orthopedist as well as [facility] orthopedics (our groups here at [place]) and was told by all 3 offices that they have no records of any recent procedures or scheduled appointments with this patient. I then
called [facility] back and at that point was told by the staff at [facility] that he did not actually have an orthopedic appointment but was supposed to go to a neurology appointment at the [facility] in [place]; they
reported that he had an appointment with Dr. Beach at 10 AM and again are unsure why he is in the emergency room. I then called the neurology office and they have no record of seeing the patient since March 2024; Dr. Beach left their
practice months ago and they have no record of an appointment with this patient upcoming. When I called [facility] once again they were not able to provide any further information as to why they put the patient in a wheelchair van to begin with and
where he was expected to be transported. They do not have any emergent concerns at this time. The patient is confused as to why he is here. He is in stable condition and has no acute complaints. At this point I will discharge the patient back to
the senior care and they can coordinate regarding future care. Advised to return with any emergent concerns.
*Pulse Oximetry
SaO2: 95
Oxygen Mode of Delivery: Room air
Patient hypoxic: no (95%)
*Critical Care Note
Total Time (30-74mins, 75-104mins- exclusive of procedures): Not Applicable
Data Reviewed
Source: patient and senior care
ED Attending Note
-
Portions of this chart may have been created with voice recognition software.� Occasional wrong word or��sound alike� substitutions may have occurred due to the inherent limitations of voice recognition software.
Discharge Plan
Departure
Patient Disposition: Home (Routine Discharge)
Date of Disposition: 02/05/25
Time of Disposition: 12:23
Patient with high blood pressure during this ER visit?: No
Discharge Problem:
Encounter for medical screening examination
Prescriptions:
No Action
ascorbic acid (vitamin C) 500 mg
500 mg PO DAILY
pantoprazole [Protonix] 40 mg Tablet,Delayed Release (Dr/Ec)
40 mg PO DAILY
docusate sodium [Colace] 100 mg Capsule
100 mg PO DAILY
folic acid 1 mg Tablet
1 mg PO DAILY
cyclobenzaprine 5 mg Tablet
5 mg PO QHS
duloxetine 20 mg Capsule, Delayed Rel Sprinkle
20 mg PO DAILY
Miralax
17 g PO DAILY
Seroquel XR
50 mg PO QHS
Vitamin D3
25 mcg PO DAILY
Xifaxan
550 mg PO BID
ferrous sulfate 325 mg
325 mg PO DAILY
furosemide
40 mg PO DAILY
gabapentin
400 mg PO TID
lactulose
20 g PO TID
magnesium oxide
400 mg PO TID
melatonin
5 mg PO QHS
olanzapine
10 mg PO DAILY
senna
836 mg PO DAILY
spironolactone
50 mg PO BID
thiamine HCl (vitamin B1)
100 mg PO DAILY
oxycodone 5 mg Tablet
5 mg PO Q4HPRN PRN (Reason: moderate pain) 3 Days Qty: 9 0RF
Referrals:
Martin Yee DO [Family Provider, Internal Medicine]
Interventions
Interventions:
*Risk Screen - Suicide Last Done: 02/05/25 10:47
*Neglect/Abuse Screening Last Done: 02/05/25 10:47
Discharge Date and Time
Print Language: SAO TOMEAN
[2025-02-05 14:00] VITALS: BP 127/98
== END 2025-02-05 14:58 | disposition home or self-care (01) ==
LOC: EMR 10:40
PROVIDERS: EMERGENCY PHYSICIAN Emergency Medicine; FAMILY PHYSICIAN Internal Medicine
DX: Z48.02 Encounter for removal of sutures (principal)
CPT/HCPCS: 99282

== ENCOUNTER → 2025-02-09 10:19 | Outpatient (REF) | payer OTHER, SELFPAY | LOC: RAD 10:19 | PROVIDERS: ATTENDING PHYSICIAN Surgery Vascular Surgery | DX: I73.9 Peripheral vascular disease, unspecified (principal) | CPT/HCPCS: 93922; 93925 ==